=== PATIENT | male | born 1945 | race Caucasian/White ===

== ENCOUNTER 2020-07-18 08:16 | Emergency (ER) | payer MEDICARE ==
[~2020-07-18] VITALS: Ht 177.8 cm; Wt 86.1 kg
--- NOTE | 2020-07-18 08:36 | NUR ---
RESIDENT AT BEDSIDE FOR EVALUATION. PER PATIENT 3 DAYS AGO PT STARTED HAVING BRIGHT RED BLOOD IN STOOL, AND THIS MORNING HE HAD A LARGE AMOUNTS OF BLOOD. PT STATES HE HAS HISTORY OF CONSTIPATION. AT BEDSIDE. VSS. WILKERSON.
--- NOTE | 2020-07-18 08:40 | NUR ---
PT DENIES VOMITING
[2020-07-18 08:47] VITALS: BP 145/58
--- NOTE | 2020-07-18 08:47 | NUR ---
AVERY GOODMAN RESIDENT PREFORMED RECTAL EXAM WITH THIS RN PRESENT.
== END 2020-07-18 09:26 | disposition home or self-care (01) ==
LOC: ED 09:14
DX: K64.8 Other hemorrhoids (principal); K59.00 Constipation, unspecified; K92.1 Melena; I10 Essential (primary) hypertension
CPT/HCPCS: 99283